=== PATIENT | male | born 1990 | race Caucasian/White ===

== ENCOUNTER 2016-06-19 15:17 | Emergency (ER) | payer BC ==
[2016-06-19] MEDS ORDERED: DIPH,PERTUS(ACELL)TETVAC-LF 0.5 ML VIAL IM ONE (15:26)
[2016-06-19 15:29] VITALS: BP 144/74; PULSE 82; RESP 18; TEMP 97.9
--- NOTE | 2016-06-19 15:45 | ED ---
Wound/Laceration HPI - General Stated Complaint: finger lac Time Seen by Provider: 06/19/16 15:21 Source: patient, RN notes reviewed Mode of arrival: ambulatory Limitations: no limitations - History of Present Illness Initial Comments: Patient is a 25-year-old male who presents to the emergency room with a finger laceration. Patient states last night he was cutting open a box with a knife and sliced his left index finger. Patient states he applied pressure and cleaned the area. Patient states he tried not to come in because he did not want stitches. Patient states the wound area is still open and thought it should be evaluated. Patient states he is not sure when his last tetanus vaccine was. Patient denies any significant pain. Patient denies any numbness or tingling in his finger. Patient denies taking blood thinners. Patient denies any other injuries during incident. Patient states he still has full range of motion of his finger. - Related Data Previous Rx's Medication Instructions Recorded Cephalexin [Keflex] 500 mg PO Q6HR 7 Days 06/19/16 Allergies Allergy/AdvReac Type Severity Reaction Status Date / Time Penicillins Allergy Unknown Verified 06/19/16 15:28 Review of Systems ROS Statement: Those systems with pertinent positive or pertinent negative responses have been documented in the HPI. ROS Other: All systems not noted in ROS Statement are negative. Past Medical History Past Medical History: No Reported History History of Any Multi-Drug Resistant Organisms: None Reported Past Surgical History: Adenoidectomy, Appendectomy, Ear Surgery, Tonsillectomy Past Psychological History: No Psychological Hx Reported Smoking Status: Current every day smoker Past Alcohol Use History: None Reported Past Drug Use History: None Reported General Exam - General Exam Comments Initial Comments: Sitting in exam room, no acute distress. Limitations: no limitations General appearance: alert, in no apparent distress Head exam: Present: atraumatic, normocephalic, normal inspection Eye exam: Present: normal appearance ENT exam: Present: normal exam Neck exam: Present: normal inspection Respiratory exam: Absent: respiratory distress Left Hand Wrist exam: Present: laceration (2 cm laceration on the medial portion of the proximal phalanx of the index finger. No active bleeding. No swelling or erythema. No signs of infection or drainage.) Neuro motor exam: Present: wrist extension intact, thumb opposition intact, thumb IP flexion intact, thumb adduction intact, fingers 2-5 abduction intact Neurosensory exam: Present: 2-point discrimination Vascular: Present: normal capillary refill (Refill less than 2 seconds), radial pulse (2+), ulnar pulse (2+) Back exam: Present: normal inspection Neurological exam: Present: alert, oriented X3, CN II-XII intact Psychiatric exam: Present: normal affect, normal mood Skin exam: Present: warm, dry. Absent: rash Course Vital Signs 06/19/16 15:26 Temperature 97.9 F Pulse Rate 82 Respiratory 18 Rate Blood Pressure 144/74 O2 Sat by Pulse 98 Oximetry Medical Decision Making - Medical Decision Making Patient is a 25-year-old male presents to the emergency room for evaluation finger laceration. Patient's laceration occurred over 12 hours ago. Laceration past the window of closure. Will place patient on antibiotics. Patient was updated on his tetanus vaccine. Laceration was irrigated and covered with bacitracin and a Band-Aid. Advised patient to return for worsening symptoms. Patient states he understands everything that was discussed with him. Case discussed with Dr. Holman. Disposition Clinical Impression: Finger laceration Disposition: HOME SELF-CARE Condition: Good Instructions: Laceration Without Closure (ED) Additional Instructions: Clean area with warm water and soap, 3 times a day. Take antibiotics as directed. Take Tylenol or Motrin as needed for discomfort. Please follow up with primary care provider in 24-48 hours for reevaluation of the wound. If any new symptom arises, symptoms worsen or fever develops, return to ER as soon as possible. Prescriptions: Cephalexin [Keflex] 500 mg PO Q6HR 7 Days Referrals: None,Stated [Primary Care Provider] - 1-2 days Time of Disposition: 15:41
== END 2016-06-19 15:57 | disposition home or self-care (01) ==
LOC: EC 15:17
DX: S61.211A Laceration without foreign body of left index finger without damage to nail, initial encounter (principal); W26.0XXA Contact with knife, initial encounter; Y93.89 Activity, other specified; Z88.0 Allergy status to penicillin; F17.200 Nicotine dependence, unspecified, uncomplicated
CPT/HCPCS: 90471; 90715; 99282

== ENCOUNTER → 2022-12-18 | Outpatient (CLI) | payer BC ==
--- NOTE | 2022-12-19 11:14 | US ---
EXAMINATION TYPE: US venous doppler duplex LE LT DATE OF EXAM: 12/18/2022 4:21 PM COMPARISON: NONE CLINICAL INDICATION: Male, 32 years old with history of M79.605; Pain. No hx of DVT. SIDE PERFORMED: Left TECHNIQUE: The lower extremity deep venous system is examined utilizing real time linear array sonog jay with graded compression, doppler sonography and color-flow sonography. VESSELS IMAGED: Common Femoral Vein Deep Femoral Vein Greater Saphenous Vein * Femoral Vein Popliteal Vein Small Saphenous Vein * Proximal Calf Veins (* superficial vessels) Left Leg: No evidence of DVT. *Prominent lymph node seen within palpable area of concern left groin: 2.3 x 0.9 x 0.6 cm. Cortex me asures 0.3 cm. IMPRESSION: 1. No evidence for DVT within the left lower extremity imaged from the groin to the upper calf. 2. Borderline enlarged left groin lymph node corresponds to the palpable site, probably reactive/post inflammatory. This can be followed clinically. Rescan if any enlargement is noted.
== END | disposition home or self-care (01) ==
LOC: RADUSWWP 15:54
PROVIDERS: ATTEND Orthopaedic Surgery
DX: M70.852 Other soft tissue disorders related to use, overuse and pressure, left thigh (principal); I80.3 Phlebitis and thrombophlebitis of lower extremities, unspecified; R59.0 Localized enlarged lymph nodes